=== PATIENT | female | born 1960 | race Caucasian/White ===

== ENCOUNTER 2023-07-25 13:08 | Outpatient (OUT) | payer OTHER, SELFPAY ==
--- NOTE | 2023-07-25 | XR_ITS ---
The [address] [address] Patient Name: CLEMENTINA SHAIKH MRN: [id number] date: 1960 Sex: F Assigned Patient Location: [facility] Current Patient Location: [facility] Accession/Order Number: [id number] Exam Date: 07/25/2023 13:15 Report Date: 07/25/2023 14:31 At the request of: LAURI TRINIDAD Procedure: XR foot LT min 3V PROCEDURE: XR ankle LT min 3V, XR foot LT min 3V COMPARISON: 08/08/2022 HISTORY: LEFT ANKLE PAIN FINDINGS: BONES:No acute fracture or dislocation. Subtalar fusion. Talonavicular fusion with a dorsal plate and multiple screws. No acute fracture, dislocation or mechanical failure. Stable underlying degenerative changes SOFT TISSUES:Negative. No visible soft tissue swelling. EFFUSION:None visible. OTHER: Negative. XR/XR foot LT min 3V IMPRESSION: Stable degenerative and postsurgical changes Electronically authenticated by: CALE HARTMAN Date: 07/25/2023 14:31
--- NOTE | 2023-07-25 | XR_ITS ---
The [address] [address] Patient Name: CLEMENTINA SHAIKH MRN: [id number] date: 1960 Sex: F Assigned Patient Location: [facility] Current Patient Location: [facility] Accession/Order Number: [id number] Exam Date: 07/25/2023 13:15 Report Date: 07/25/2023 14:31 At the request of: LAURI TRINIDAD Procedure: XR ankle LT min 3V PROCEDURE: XR ankle LT min 3V, XR foot LT min 3V COMPARISON: 08/08/2022 HISTORY: LEFT ANKLE PAIN FINDINGS: BONES:No acute fracture or dislocation. Subtalar fusion. Talonavicular fusion with a dorsal plate and multiple screws. No acute fracture, dislocation or mechanical failure. Stable underlying degenerative changes SOFT TISSUES:Negative. No visible soft tissue swelling. EFFUSION:None visible. OTHER: Negative. XR/XR ankle LT min 3V IMPRESSION: Stable degenerative and postsurgical changes Electronically authenticated by: CALE HARTMAN Date: 07/25/2023 14:31
== END 2023-07-25 13:09 | disposition home or self-care (01) ==
LOC: RAD 13:08
PROVIDERS: Visit Provider Podiatrist Foot & Ankle Surgery
DX: M79.672 Pain in left foot (principal); M25.572 Pain in left ankle and joints of left foot
CPT/HCPCS: 73610; 73630

== ENCOUNTER 2023-08-28 14:39 | Outpatient (OUT) | payer OTHER, SELFPAY ==
--- NOTE | 2023-08-28 | XR_ITS ---
The [address] [address] Patient Name: CLEMENTINA SHAIKH MRN: [id number] date: 1960 Sex: F Assigned Patient Location: [facility] Current Patient Location: [facility] Accession/Order Number: [id number] Exam Date: 08/28/2023 15:08 Report Date: 08/28/2023 15:59 At the request of: LAURI TRINIDAD Procedure: XR foot LT min 3V PROCEDURE: XR foot LT min 3V DATE: 08/28/2023 2:08 PM CLINICAL RESEARCH MONITOR COMPARISONS: 07/25/2023 CLINICAL INDICATION: LEFT FOOT PAIN FINDINGS: There is no evidence of fractures or other acute osseous abnormalities. There is again bone demineralization. There is again hindfoot fusion, stable. The fusion hardware appears to be intact and in stable position. XR/XR foot LT min 3V IMPRESSION: Left foot radiographs show postop changes, stable from previous exam. No evidence of acute osseous abnormalities. Electronically authenticated by: BRENDA RICHEY Date: 08/28/2023 15:59
--- NOTE | 2023-08-28 | XR_ITS ---
The [place] [id number] Patient Name: CLEMENTINA SHAIKH MRN: [id number] date: 1960 Sex: F Assigned Patient Location: [facility] Current Patient Location: [facility] Accession/Order Number: [id number] Exam Date: 08/28/2023 15:08 Report Date: 08/28/2023 17:13 At the request of: LAURI TRINIDAD Procedure: XR ankle LT min 3V EXAM: XR ankle LT min 3V HISTORY: LEFT ANKLE PAIN COMPARISON: 07/25/2023 TECHNIQUE: 3 views of the left ankle were obtained. FINDINGS: There is no apparent acute fracture or dislocation. Remote postsurgical changes are present with a fusion procedure involving the talus, the navicular bone and the calcaneus. Hardware remains in place and is unchanged. The mortise is intact. Soft tissue calcifications are seen associated with the medial and lateral malleoli. Calcifications are also seen in the distal Achilles tendon. XR/XR ankle LT min 3V IMPRESSION: No acute fracture or dislocation. Postsurgical changes are present with hardware in place. Degenerative changes are noted. The overall appearance is unchanged. Electronically authenticated by: LAURI SOTELO Date: 08/28/2023 17:13
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
== END 2023-08-28 14:40 | disposition home or self-care (01) ==
LOC: RAD 14:40
PROVIDERS: Visit Provider Podiatrist Foot & Ankle Surgery
DX: M25.572 Pain in left ankle and joints of left foot (principal); M79.672 Pain in left foot
CPT/HCPCS: 73610; 73630

== ENCOUNTER 2023-10-09 15:00 | Outpatient (OUT) | payer OTHER, SELFPAY ==
--- NOTE | 2023-10-09 | XR_ITS ---
The [place] [id number] Patient Name: CLEMENTINA SHAIKH MRN: [id number] date: 1960 Sex: F Assigned Patient Location: Current Patient Location: Accession/Order Number: [id number] Exam Date: 10/09/2023 15:05 Report Date: 10/11/2023 12:27 At the request of: LAURI TRINIDAD Procedure: XR ankle LT min 3V PROCEDURE: XR ankle LT min 3V DATE: 10/09/2023 3:05 PM EST COMPARISONS: 08/28/2023 CLINICAL INDICATION: LEFT ANKLE PAIN FINDINGS: Hindfoot fusion is again identified, stable from previous exam. Fusion hardware appears intact and stable. The ankle mortise is intact and stable in appearance. There is no evidence of fractures or other acute osseous abnormalities. XR/XR ankle LT min 3V IMPRESSION: Left ankle radiographs show no evidence of acute abnormalities. Stable postop changes Electronically authenticated by: BRENDA RICHEY Date: 10/11/2023 12:27
--- NOTE | 2023-10-09 | XR_ITS ---
The [address] [address] Patient Name: CLEMENTINA SHAIKH MRN: [id number] date: 1960 Sex: F Assigned Patient Location: Current Patient Location: Accession/Order Number: [id number] Exam Date: 10/09/2023 15:05 Report Date: 10/09/2023 18:28 At the request of: LAURI TRINIDAD Procedure: XR foot LT min 3V EXAM: XR foot LT min 3V HISTORY: LEFT FOOT PAIN COMPARISON: 08/28/2023 TECHNIQUE: 3 views of left foot were obtained. FINDINGS: There is no evidence of an acute fracture or dislocation. Postsurgical changes are noted with hardware from a fusion procedure involving the mid and hindfoot. Pes planus is noted. XR/XR foot LT min 3V IMPRESSION: No acute fracture or dislocation. The joint spaces in the mid and distal foot are intact. Postsurgical changes are noted, and the overall appearance of the foot is unchanged. Electronically authenticated by: LAURI SOTELO Date: 10/09/2023 18:28
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
== END 2023-10-09 15:01 | disposition home or self-care (01) ==
PROVIDERS: Visit Provider Podiatrist Foot & Ankle Surgery
DX: M79.672 Pain in left foot (principal); M25.572 Pain in left ankle and joints of left foot
CPT/HCPCS: 73610; 73630

== ENCOUNTER 2023-10-23 12:45 | Outpatient (OUT) | payer SELFPAY ==
--- NOTE | 2023-10-23 | XR_ITS ---
[address] [address] Patient Name: CLEMENTINA SHAIHK MRN: [id number] date: 1960 Sex: F Assigned Patient Location: Current Patient Location: Accession/Order Number: [id number] Exam Date: 10/23/2023 12:50 Report Date: 10/23/2023 13:48 At the request of: LAURI TRINIDAD Procedure: XR foot LT min 3V PROCEDURE: XR ankle LT min 3V, XR foot LT min 3V COMPARISON: 10/09/2023 HISTORY: LEFT ANKLE PAIN FINDINGS: BONES:Stable subtalar fusion with 2 cannulated screws. Stable talonavicular fusion with a dorsal plate and screws. No acute fracture, dislocation or mechanical failure. SOFT TISSUES:Negative. No visible soft tissue swelling. EFFUSION:None visible. OTHER: Negative. XR/XR foot LT min 3V IMPRESSION: Stable midfoot hindfoot fusion with no mechanical failure Electronically authenticated by: CALE HARTMAN Date: 10/23/2023 13:48
--- NOTE | 2023-10-23 | XR_ITS ---
[address] [address] Patient Name: CLEMENTINA SHAIKH MRN: [id number] date: 1960 Sex: F Assigned Patient Location: Current Patient Location: Accession/Order Number: [id number] Exam Date: 10/23/2023 12:50 Report Date: 10/23/2023 13:48 At the request of: LAURI TRINIDAD Procedure: XR ankle LT min 3V PROCEDURE: XR ankle LT min 3V, XR foot LT min 3V COMPARISON: 10/09/2023 HISTORY: LEFT ANKLE PAIN FINDINGS: BONES:Stable subtalar fusion with 2 cannulated screws. Stable talonavicular fusion with a dorsal plate and screws. No acute fracture, dislocation or mechanical failure. SOFT TISSUES:Negative. No visible soft tissue swelling. EFFUSION:None visible. OTHER: Negative. XR/XR ankle LT min 3V IMPRESSION: Stable midfoot hindfoot fusion with no mechanical failure Electronically authenticated by: CALE HARTMAN Date: 10/23/2023 13:48
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
== END 2023-10-23 12:46 | disposition home or self-care (01) ==
LOC: EC 12:46
PROVIDERS: Visit Provider Podiatrist Foot & Ankle Surgery
DX: M25.572 Pain in left ankle and joints of left foot (principal); M84.375D Stress fracture, left foot, subsequent encounter for fracture with routine healing; Z98.890 Other specified postprocedural states
CPT/HCPCS: 73610; 73630

== ENCOUNTER 2023-11-13 14:03 | Outpatient (OUT) | payer OTHER, SELFPAY ==
--- NOTE | 2023-11-13 | XR_ITS ---
The [address] [address] Patient Name: CLEMENTINA SHAIKH MRN: [id number] date: 1960 Sex: F Assigned Patient Location: Current Patient Location: Accession/Order Number: [id number] Exam Date: 11/13/2023 14:20 Report Date: 11/14/2023 07:18 At the request of: LAURI TRINIDAD Procedure: XR foot LT min 3V PROCEDURE: XR foot LT min 3V HISTORY: LEFT FOOT PAIN COMPARISON: XR foot left 10/23/2023 FINDINGS: BONES:Prior mechanical fusion of the talocalcaneal joint and talonavicular joint; no appreciable hardware fracture loosening. No bone fracture dislocation. SOFT TISSUES:No visible soft tissue swelling. EFFUSION:None visible. OTHER: Negative. XR/XR foot LT min 3V IMPRESSION: 1. Stable surgical changes without evidence of hardware failure or change in alignment. Electronically authenticated by: KATLIN LOBATO Date: 11/14/2023 07:18
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
== END 2023-11-13 14:04 | disposition home or self-care (01) ==
LOC: EC 14:03
PROVIDERS: Visit Provider Podiatrist Foot & Ankle Surgery
DX: S90.32XD Contusion of left foot, subsequent encounter (principal); Z98.890 Other specified postprocedural states
CPT/HCPCS: 73630

== ENCOUNTER 2024-05-12 13:48 | Outpatient (OUT) | payer OTHER, SELFPAY ==
--- NOTE | 2024-05-12 | XR_ITS ---
The [address] [address] Patient Name: CLEMENTINA SHAIKH MRN: [id number] date: 1960 Sex: F Assigned Patient Location: Current Patient Location: Accession/Order Number: [id number] Exam Date: 05/12/2024 13:58 Report Date: 05/14/2024 06:59 At the request of: LAURI TRINIDAD Procedure: XR foot LT min 3V PROCEDURE: XR foot LT min 3V HISTORY: LEFT FOOT PAIN COMPARISON: XR foot left 11/13/2023 FINDINGS: BONES:Mechanical fusion of the talocalcaneal joint via 2 lag screws. Mechanical fusion of the talonavicular joint via dorsal plate and multiple screws. No appreciable hardware fracture loosening. No bone fracture dislocation. SOFT TISSUES:No visible soft tissue swelling. EFFUSION:None visible. OTHER: Negative. XR/XR foot LT min 3V IMPRESSION: 1. Stable surgical changes without evidence of hardware failure or change in alignment. 2. No appreciable acute bone abnormality. Electronically authenticated by: KATLIN LOBATO Date: 05/14/2024 06:59
== END 2024-05-12 13:49 | disposition home or self-care (01) ==
LOC: EC 13:48
PROVIDERS: Visit Provider Podiatrist Foot & Ankle Surgery
DX: M79.672 Pain in left foot (principal)
CPT/HCPCS: 73630